=== PATIENT | male | born 1950 | race Caucasian/White ===

== ENCOUNTER → 2017-05-04 | Outpatient (CLI) | payer BC ==
[~2017-05-04] MED LIST: COLACE100 MG PO; HYDROCODON-ACE1 EAC6 PO; INVANZ1 G1 IV; TRINTELLIX 10 PO; XANAX1 MG PO
== END ==
LOC: GOPD 05-02
DX: K65.1 Peritoneal abscess (principal); E87.6 Hypokalemia; D72.829 Elevated white blood cell count, unspecified; Z85.46 Personal history of malignant neoplasm of prostate; I10 Essential (primary) hypertension
CPT/HCPCS: J7030